=== PATIENT | male | born 1995 | race Caucasian/White ===

== ENCOUNTER 2022-02-20 03:41 | Emergency (ER) | payer MEDICAID ==
[~2022-02-20] VITALS: Ht 167.6 cm; Wt 70.0 kg
[2022-02-20 03:50] VITALS: BP 139/89
== END 2022-02-20 06:15 | disposition home or self-care (01) ==
LOC: ER 03:52
DX: M25.532 Pain in left wrist (principal); V89.2XXA Person injured in unspecified motor-vehicle accident, traffic, initial encounter; Y93.89 Activity, other specified; Y92.89 Other specified places as the place of occurrence of the external cause; Y99.8 Other external cause status

== ENCOUNTER 2023-08-25 00:09 | Emergency (ER) | payer MEDICAID ==
[~2023-08-25] VITALS: Ht 167.6 cm; Wt 65.9 kg
[2023-08-25 00:10] VITALS: PULSE 87; RESP 20; O2SAT 99
[2023-08-25 00:44] LABS: Basophils # (auto) 0 10 ^3/uL (0-0.2); Basophils % (auto) 0.3 % (0.0-2.0); Eosinophils # (auto) 0.1 10 ^3/uL (0-0.8); Eosinophils % (auto) 0.5 % (0.0-7.0); Hematocrit 48.5 % (41.0-53.0); Hemoglobin 16.4 g/dL (13.5-17.5); Lymphocytes # (auto) 1.4 10 ^3/uL (0.4-5.4); Mean Corpuscular Hemoglobin 28.7 pg (28.0-32.0); Mean Corpuscular Hgb Conc. 33.9 g/dL (32.0-36.0); Mean Corpuscular Volume 84.8 fL (80.0-100.0); Monocytes # (auto) 1.3 10 ^3/uL (0-1.3); Monocytes % (auto) 9.6 % (0.0-12.0); Neutrophils # (auto) 10.8 10 ^3/uL (1.6-8.6); Neutrophils % (auto) 79.6 % (37.0-80.0); Red Blood Cells 5.72 10^6/uL (4.5-5.90); White Blood Cell 13.6 10^3/uL (4.4-10.8)
[2023-08-25 01:03] LABS: Alanine Aminotransferase 25 U/L (7-40); Albumin 4.6 g/dL (3.2-4.8); Alkaline Phosphatase 77 U/L (46-116); Anion Gap 5 (5-15); Aspartate Aminotransferase 28 U/L (13-40); BUN/Creatinine Ratio 17.2 (10.0-20.0); Blood Urea Nitrogen 17 mg/dL (9-23); Calcium 9.5 mg/dL (8.7-10.4); Carbon Dioxide 28 mmol/L (20-30); Chloride 104 mmol/L (98-107); Glucose 113 mg/dL (74-106); Potassium 4.2 mmol/L (3.5-5.1); Sodium 137 mmol/L (136-145)
[2023-08-25 01:04] LABS: Bilirubin, Total 0.7 mg/dL (0.2-1.0); Total Protein 7.5 g/dL (5.7-8.2)
[2023-08-25] MEDS: ceFAZolin 2 GM/D5W50ml 50 ML IV ONE (01:34)
[2023-08-25] MEDS: ONDANSETRON HCL 4 MG/2 ML VIAL IV ONE ×2 (03:01→05:29)
[2023-08-25] MEDS: MORPHINE SULFATE 4 MG/ML SYR/VIAL IV ONE (03:01)
[2023-08-25] MEDS: MORPHINE SULFATE INJ 2 MG/ml SYRG IV ONE (05:30)
[2023-08-25 07:58] VITALS: BP 125/82; PULSE 62; RESP 16; TEMP 98.1; O2SAT 97
== END 2023-08-25 08:24 | disposition short-term general hospital (02) ==
LOC: ER 00:09 → EEVIPCON 00:09 → ER 08:24
DX: S81.832A Puncture wound without foreign body, left lower leg, initial encounter (principal); W33.01XA Accidental discharge of shotgun, initial encounter; Y93.89 Activity, other specified; Y92.89 Other specified places as the place of occurrence of the external cause; Y99.8 Other external cause status
CPT/HCPCS: 36415; 73590; 80053; 85025; 86850; 86900; 86901; 96365; 96366; 96375; 96376; 99285; J0690; J2270; J2405

== ENCOUNTER 2024-05-08 16:26 | Emergency (ER) | payer MEDICAID ==
[~2024-05-08] VITALS: Ht 167.6 cm; Wt 59.7 kg
[2024-05-08] MEDS: diphenhdrAMINE HCL 50 MG/1 ML VL IV ONE (17:11)
[2024-05-08] MEDS: DexAMETHasone SOD PHOS 10MG/1ML VIAL INJ IV ONE (17:11)
[2024-05-08] MEDS: EPINEPHrine HCL 1 MG/1 ML AMP SC ONE (17:12)
[2024-05-08] MEDS: FAMOTIDINE INJECTION 40 MG in SODIUM CHL 0.9% 100 ML IV ONE (17:27)
--- NOTE | 2024-05-08 17:47 | ED.PDOC ---
HPI Allergic reaction HPI Comments 29y M who presents to the ED for chief complaint of allergic reaction. Pt states this AM at approx, he noticed small bumps on the R side of his torso region. Pt states earlier this afternoon, he has noticed increased swelling and redness throughout his body with noted hives spreading throughout. Pt states he started to feel swelling of his L eye and his throat is starting to feel funny and came to the ED for further evaluation. Pt denies any new changes to diet but states he has been using new laundry detergent. Pt in the ED, in no noted distress and has 02 sat of 98% on room air with all other vitals in normal range. Pt otherwise denies any other symptoms at this time. Chief Complaint: Allergic Reaction Time Seen by MD: 17:45 Primary Care Provider: NONE Reviewed Notes: Nurses Notes Allergies: Coded Allergies: NO KNOWN ALLERGIES (Unverified , 02/20/22) Home Meds Active Scripts Hydrocortisone Base (Hydrocortisone) 2.5 % Cre, 2.5 % RE QID PRN for 10 Days, #120 CRE Prov:KIMMY MORALES MD 05/08/24 Prednisone (Prednisone) 20 Mg Tab, 20 MG PO BID for 5 Days, #10 TAB Prov:KIMMY MORALES MD 05/08/24 Information Source: Patient Mode of Arrival: Ambulatory Brought in by: self Past Medical History PAST MEDICAL HISTORY: Denies Surgical History: Denies all surgeries Family History Family History: Unknown Social History Smoker: Non-Smoker Alcohol: Denies ETOH Use Drugs: Denies Drug Use Lives In: Home Constitutional: denies: chills, diaphoresis, fatigue, fever, malaise, sweats, weakness, others EENTM: denies: blurred vision, double vision, ear bleeding, ear discharge, ear drainage, ear pain, ear ringing, eye pain, eye redness, hearing loss, mouth pain, mouth swelling, nasal discharge, nose bleeding, nose congestion, nose pain, photophobia, tearing, throat pain, throat swelling, voice changes, others Respiratory: denies: cough, hemoptysis, orthopnea, SOB at rest, shortness of breath, SOB with excertion, stridor, wheezing, others Cardiovascular: denies: chest pain, dizzy spells, diaphoresis, Dyspnea on exertion, edema, irregular heart beat, left arm pain, lightheadedness, palpitations, PND, syncope, others Gastrointestinal: denies: abdomen distended, abdominal pain, blood streaked bowels, constipated, diarrhea, dysphagia, difficulty swallowing, hematemesis, melena, nausea, poor appetite, poor fluid intake, rectal bleeding, rectal pain, vomiting, others Genitourinary: denies: burning, dysuria, flank pain, frequency, hematuria, incontinence, penile discharge, penile sore, pain, testicle pain, testicle swelling, urgency, others Neurological: denies: dizziness, fainting, headache, left sided numbness, left sided weakness, numbness, paresthesia, pre-existing deficit, right sided numbness, right sided weakness, seizure, speech problems, tingling, tremors, weakness, others Musculoskeletal: denies: back pain, gout, joint pain, joint swelling, muscle pain, muscle stiffness, neck pain, others Integumetry: denies: bruises, change in color, change in hair/nails, dryness, laceration, lesions, lumps, rash, wounds, others Allergic/Immunocompromised: reports: Hives, Itching; denies: Difficulty Healing, Frequent Infections, others Hematologic/Lymphatic: denies: anemia, blood clots, easy bleeding, easy bruising, swollen glands, others Endocrine: denies: excessive hunger, excessive sweating, excessive thirst, excessive urination, flushing, intolerance to cold, intolerance to heat, unexplained weight gain, unexplained weight loss, others Psychiatric: denies: anxiety, bipolar disorder, depression, hopeless, panic disorder, schizophrenia, sleepless, suicidal, others All Other Systems: Reviewed and Negative Physical Exam Exam Comments no tongue or lip swelling lungs clear General Appearance: Mild Distress, Normal HEENT: Normal ENT Inspection, Pharynx Normal, TMs Normal Neck: Full Range of Motion, Non-Tender, Normal, Normal Inspection Respiratory: Chest Non-Tender, Lungs Clear, No Accessory Muscle Use, No Respiratory Distress, Normal Breath Sounds Cardiovascular: No Edema, No JVD, No Murmur, No Gallop, Normal Peripheral Pulses, Regular Rate/Rhythm Breast Exam: Deferred Gastrointestinal: No Organomegaly, Non Tender, No Pulsatile Mass, Normal Bowel Sounds, Soft Genitalia: Deferred Pelvic: Deferred Rectal: Deferred Extremities: No calf tenderness, Normal capillary refill, Normal inspection, Normal range of motion, Non-tender, No pedal edema Musculoskeletal : Apperance: Normal Neurologic: Alert, physician practice manager II-XII nml as Tested, No Motor Deficits, Normal Affect, Normal Mood, No Sensory Deficits Cerebellar Function: Normal Reflexes: Normal Skin: Rash (urticaria diffuse), Other Lymphatic: No Adenopathy Was a procedure done? Was a procedure done?: No Differential diagnosis (all) Differential Diagnosis: Anaphylaxis, Angioedema, Bronchospasm, Contact Dermatitis, Drug Reaction, Urticaria X-Ray, Labs, Meds, VS Vital Signs Date Time Temp Pulse Resp B/P (MAP) Pulse Ox O2 Delivery O2 Flow Rate FiO2 05/08/24 18:53 98.0 99 16 127/85 (99) 99 98.0 05/08/24 16:48 Room Air* 0 21 05/08/24 16:47 98.9 92 17 138/77 (97) 99 98.9 05/08/24 16:33 97.6 67 20 150/91 (110) 98 Current Medications Medications (Trade) Dose Ordered Sig/Jaye Route Start Time Stop Time Status Last Admin Dexamethasone Sodium Phosphate (Decadron Injection) 10 mg ONCE ONCE IV 05/08/24 17:00 05/08/24 17:01 DC 05/08/24 17:11 Diphenhydramine HCl (Benadryl Injection) 50 mg ONCE ONCE IV 05/08/24 17:00 05/08/24 17:01 DC 05/08/24 17:11 Famotidine 40 mg/ Sodium Chloride 104 ml @ 416 mls/hr ONCE ONCE IV 05/08/24 17:00 05/08/24 17:14 DC 05/08/24 17:27 Epinephrine HCl 0.3 mg ONCE ONCE SC 05/08/24 17:00 05/08/24 17:01 DC 05/08/24 17:12 Time of 1ST Reevaluation: 18:15 Reevaluation 1ST: Unchanged Time of 2ND Reevaluation: 19:30 Reevaluation 2ND: Improved Patient Education/Counseling: Diagnosis, Treatment Family Education/Counseling: No Family Present Departure 1 Departure Time of Disposition: 19:30 Impression: Primary Impression: Allergic reaction Disposition: 01 HOME / SELF CARE / HOMELESS Condition: Stable e-Prescriptions Hydrocortisone Base (Hydrocortisone) 2.5 % Cre 2.5 % RE QID PRN for 10 Days, #120 CRE Prov: KIMMY MORALES MD 05/08/24 Prednisone (Prednisone) 20 Mg Tab 20 MG PO BID for 5 Days, #10 TAB Prov: KIMMY MORALES MD 05/08/24 Discharged With: Self Critical Care Note Critical Care Time?: No Stability Stability form required: No Heart Score Heart Score: Heart Score Response (Comments) Value History N/A 0 EKG N/A 0 Age N/A 0 Risk Factors N/A 0 Troponin N/A 0 Total 0 I personally scribed for KIMMY MORALES MD ([email or web address]) on 05/08/24 at 17:47. Electronically submitted by Oscar Montanez ([email or web address]). KIMMY MORALES MD May 08, 2024 17:47
[2024-05-08] MEDS ORDERED: HYDR2.5C65 RE (18:38)
[2024-05-08] MEDS ORDERED: PRED20TA2 PO (18:38)
[2024-05-08 18:53] VITALS: BP 127/85; PULSE 99; RESP 16; TEMP 98; O2SAT 99
== END 2024-05-08 18:55 | disposition home or self-care (01) ==
LOC: ER 16:26
DX: T78.40XA Allergy, unspecified, initial encounter (principal); X58.XXXA Exposure to other specified factors, initial encounter; Y93.89 Activity, other specified; Y92.89 Other specified places as the place of occurrence of the external cause; Y99.8 Other external cause status
CPT/HCPCS: 96365; 96372; 96375; 99284; J0171; J1100; J1200; J3490

== ENCOUNTER 2024-05-10 20:27 | Emergency (ER) | payer MEDICAID ==
[~2024-05-10 20:27] MED LIST: HYDR2.5C65 RE; PRED20TA2 PO
== END 2024-05-10 21:11 | disposition left against medical advice (07) ==
LOC: ER 20:27
DX: T78.40XA Allergy, unspecified, initial encounter (principal); Z53.21 Procedure and treatment not carried out due to patient leaving prior to being seen by health care provider